=== PATIENT | female | born 1985 | race Caucasian/White ===

== ENCOUNTER 2016-07-07 13:15 | Emergency (ER) | payer BC ==
[~2016-07-07] VITALS: Ht 165.1 cm; Wt 57.0 kg
[2016-07-07 14:12] VITALS: BP 128/80
[2016-07-07] MEDS ORDERED: LEVO75TA5 PO (14:12)
[2016-07-07 14:33] LABS: HEMOGLOBIN 11.8 g/dL (11.7-16.4)
[2016-07-07 14:34] LABS: BLOOD UREA NITROGEN 9 mg/dL (7-18)
[2016-07-07 14:45] LABS: PATH.CAST-FLAG NOT PRESENT; SPERM-FLAG NOT PRESENT; SRC-FLAG NOT PRESENT; XTAL-FLAG NOT PRESENT; YLC-FLAG NOT PRESENT
[2016-07-07 15:34] LABS: BLOOD UREA NITROGEN 8 mg/dL (7-18)
== END 2016-07-07 17:00 | disposition home or self-care (01) ==
LOC: ED 16:40
DX: O20.0 Threatened abortion (principal); O23.41 Unspecified infection of urinary tract in pregnancy, first trimester; N30.90 Cystitis, unspecified without hematuria
CPT/HCPCS: 36415; 76801; 80048; 81001; 82040; 84702; 85025; 86850; 86870; 86900; 87077; 87086; 87186

== ENCOUNTER 2017-04-05 13:09 | Outpatient (CLI) | payer BC ==
[~2017-04-05 13:09] MED LIST: LEVO75TA5 PO
[2017-04-05 14:44] LABS: MICROSCOPIC NOT IND
== END 2017-04-05 15:02 | disposition home or self-care (01) ==
LOC: LDOP 13:09
PROVIDERS: ATTEND Obstetrics & Gynecology
DX: O46.93 Antepartum hemorrhage, unspecified, third trimester (principal); Z3A.30 30 weeks gestation of pregnancy
CPT/HCPCS: 59025; 81003; 87086; 99201; G0463